=== PATIENT | female | born 1955 | race Caucasian/White ===

== ENCOUNTER → 2019-03-23 | Day surgery (SDC) | payer OTHER ==
[~2019-03-23] VITALS: Ht 160 cm; Wt 61.2 kg
[~2019-03-23] MED LIST: ALBUTEROL2.5 MG/31 INH; ASPIRIN81 M2 PO; CELEXA40 MG PO; CENTRUM SILVER1 EAC4 PO; COREG6.25 MG PO; ENTRESTO 49 MG1 EACH PO; FLONASE 0.05%50 MCG NASAL; LIPITOR10 MG PO; LISINOPRIL40 MG PO; NEURONTIN 300300 M1 PO; NORCO 10-325 T1 EACH PO; SINGULAIR 10 MG10 M1 PO; SPIRONOLACTONE25 M1 PO; SYMBICORT160 MCG/4. INH; VENTOLIN HFA 1818 GM INH; XANAX 0.25 MG0.25 MG PO
[2019-03-23 09:25] LABS: CALCIUM 9.5 mg/dL (8.5-10.1); CREATININE 0.9 mg/dL (0.6-1.0); POTASSIUM 5.4 mmol/L (3.5-5.1)
[2019-03-23 09:45] VITALS: BP 91/48
--- NOTE | 2019-03-27 06:49 | O ---
[facility] [place] [address] OPERATIVE REPORT Name: ES MEREDITH Room #: REG [facility]#: [id number] Admission: 03/23/19 Attend Phys: Carloz Clark MD Discharge: Date of : 55 Report #: [id number] THIS REPORT FOR: //name// CC: Jaya Clark DATE OF SERVICE: 03/23/2019 SURGEON: Carloz Clark MD MOLDED FRAMES ASSEMBLER: None. PREOPERATIVE DIAGNOSIS: Bilateral lower lid ectropion. POSTOPERATIVE DIAGNOSIS: Bilateral lower lid ectropion. OPERATION PERFORMED: Bilateral lower lid ectropion repair. ANESTHESIA: Local with IV sedation. COMPLICATIONS: None. INDICATIONS FOR PROCEDURE: This patient has bilateral acquired lower lid ectropion with chronic tearing, keratopathy and discharge. The current procedures are undertaken in order to improve the patient's visual function, lacrimal outflow, and level of comfort. Informed consent was obtained to include but not limit to the risk of loss of vision, bleeding, infection, scarring, failure to improve the problem and need for further surgery. DESCRIPTION OF OPERATION: The patient was taken to the operating room where 2% Xylocaine with epinephrine mixed with equal parts of 0.75% Marcaine with Wydase was administered transcutaneously and transconjunctivally to each lower lid and lateral canthal area. The patient was then prepped and draped in the usual sterile fashion. A Tessy clamp was then used to clamp the left lateral canthus following which a sharp canthotomy and cantholysis were performed. The tarsal strip was prepared laterally, removing the lash bearing portion of the redundant lid margin and the redundant tarsal plate. Hemostasis was achieved with a monopolar cautery, as it was throughout the case. The tarsal strip was then secured to the internal portion of the lateral orbital tubercle with two interrupted 5-0 Prolene sutures. The lateral canthal angle was sharply reformed as the subcutaneous structures and the skin were closed with multiple interrupted 6-0 plain gut sutures. Attention was then turned to the right side where the same procedure was [facility] [address] [place] [address] OPERATIVE REPORT Name: ES MEREDITH Room #: REG [facility]#: [id number] Admission: 03/23/19 Attend Phys: Carloz Clark MD Discharge: Date of : 55 Report #: [id number] performed. The wounds were cleaned and dressed with ophthalmic antibiotic ointment. The patient was then transported to the recovery area, having tolerated the procedure well with no anesthetic or operative complications being noted. <ELECTRONICALLY SIGNED> By: Carloz Clark MD 03/27/19 [id number] Carloz Clark MD /nt
== END | disposition home or self-care (01) ==
LOC: OR 08:52
PROVIDERS: Ophthalmology
DX: H02.102 Unspecified ectropion of right lower eyelid (principal); H02.105 Unspecified ectropion of left lower eyelid; I10 Essential (primary) hypertension; E78.5 Hyperlipidemia, unspecified; I42.9 Cardiomyopathy, unspecified; J45.909 Unspecified asthma, uncomplicated; F32.9 Major depressive disorder, single episode, unspecified; F41.9 Anxiety disorder, unspecified; Z90.49 Acquired absence of other specified parts of digestive tract; Z90.710 Acquired absence of both cervix and uterus; Z98.890 Other specified postprocedural states; Z79.899 Other long term (current) drug therapy; Z79.82 Long term (current) use of aspirin
CPT/HCPCS: 50010; 50101; 50386; 50398; 51636; 56527; 56531; 62110; 62850; 70005

== ENCOUNTER 2019-07-06 09:08 | Day surgery (SDC) | payer OTHER ==
[~2019-07-06] VITALS: Ht 162.6 cm; Wt 61.2 kg
[2019-07-06 11:42] VITALS: BP 113/61
--- NOTE | 2019-07-10 06:15 | O ---
[facility] [place] [address] OPERATIVE REPORT Name: ES MEREDITH Room #: DEP [facility]#: [id number] Admission: 07/06/19 Attend Phys: Carloz Clark MD Discharge: 07/06/19 Date of : 55 Report #: [id number] THIS REPORT FOR: //name// CC: Paul Steen DATE OF SERVICE: 07/06/2019 SKI BASE TRIMMER: None. PREOPERATIVE DIAGNOSIS: Bilateral upper lid ptosis with superior visual field defects both eyes. POSTOPERATIVE DIAGNOSIS: Bilateral upper lid ptosis with superior visual field defects both eyes. OPERATION PERFORMED: Bilateral upper lid functional ptosis repair. SKI BASE TRIMMER: None. ANESTHESIA: Local with IV sedation. COMPLICATIONS: None. INDICATIONS FOR PROCEDURE: This patient has bilateral upper lid ptosis with superior visual field loss both eyes. Visual field testing demonstrates dense superior visual defects. Retesting with the upper lid elevated shows an improvement in visual field loss of over 30% and in excess of 12 degrees. The current procedure is being undertaken in order to improve the patient's visual function. Informed consent was obtained to include but not limited to the risk of loss of vision, bleeding, infection, scarring, failure to improve the problem and need for further surgery, such as adjustment of lid height. DESCRIPTION OF PROCEDURE: The patient was taken to the operating room, where 2% Xylocaine with epinephrine mixed with equal parts of 0.75% Marcaine with Wydase was administered transcutaneously to each upper lid. The patient was then prepped and draped in the usual sterile fashion. An upper lid crease incision was then made bilaterally and the dissection was carried down until the orbital septum was identified. The orbital septum was then cleared and the preaponeurotic fat identified. The levator aponeurosis was then disinserted from the anterior surface of the tarsal plate and dissected [address] [address] OPERATIVE REPORT Name: VIRIES Mora Room #: DEP [facility]..#: [id number] Admission: 07/06/19 Attend Phys: Carloz Clark MD Discharge: 07/06/19 Date of : 55 Report #: [id number] free in the avascular Karimi's muscle plane. The aponeurosis was then advanced and reattached to the anterior surface of the tarsal plate with interrupted mattress 6-0 Novafil sutures on each side, adjusting for height and contour. The redundant aponeurosis was then amputated. The incision was then closed with multiple interrupted 6-0 chromic sutures that were used to recreate an upper lid crease. The skin was closed with a running 6-0 plain gut suture. The wound was then cleaned and dressed with ophthalmic antibiotic ointment followed by a Telfa pad. The patient was transported to the recovery area, having tolerated the procedure well with no anesthesia or operative complications being noted. <ELECTRONICALLY SIGNED> By: Carloz Clark MD 07/10/19 0615 [id number] Carloz Clark MD /damaris
== END 2019-07-06 13:00 | disposition home or self-care (01) ==
LOC: OR 09:08 → TBA 09:09 → OR 10:01
DX: H02.413 Mechanical ptosis of bilateral eyelids (principal); H53.462 Homonymous bilateral field defects, left side; H53.461 Homonymous bilateral field defects, right side; I10 Essential (primary) hypertension; I42.9 Cardiomyopathy, unspecified; J45.909 Unspecified asthma, uncomplicated; F32.9 Major depressive disorder, single episode, unspecified; F41.9 Anxiety disorder, unspecified; E78.5 Hyperlipidemia, unspecified; Z98.890 Other specified postprocedural states; Z90.49 Acquired absence of other specified parts of digestive tract; Z90.710 Acquired absence of both cervix and uterus; Z79.899 Other long term (current) drug therapy
CPT/HCPCS: 50010; 50101; 50386; 50398; 51636; 56528; 56531; 62110; 62850; 70005